=== PATIENT | female | born 1965 | race Caucasian/White ===

== ENCOUNTER → 2020-12-18 11:15 | Outpatient (CLI) | payer OTHER, SELFPAY ==
--- NOTE | ~2020-12-18 | MM_ITS ---
EXAMINATION: MM screening [facility] BI w benny HISTORY: Screening mammogram TECHNIQUE: Craniocaudal and mediolateral oblique 3-D tomosynthesis images were obtained and synthetic 2-D images were generated. CAD analysis was submitted and interpreted. COMPARISON: 05/16/2016, 05/03/2016, 05/05/2015, 04/29/2015 BREAST PARENCHYMAL COMPOSITION: There are scattered areas of fibroglandular density. FINDINGS: RIGHT BREAST: There is no evidence of suspicious mass, calcification, or architectural distortion to suggest malignancy. A stable mass in the anterior third of the outer breast is considered benign give n the lack of interval change. There has been no significant interval change. LEFT BREAST: There is a possible mass in the middle third of the slightly outer breast 8 cm from the nipple. IMPRESSION: 1. Possible left breast mass. 2. Additional mammographic views and possible breast ultrasound are recommended. BI-RADS Category 0: Incomplete: Needs additional imaging evaluation. Reviewed, dictated and finalized at location A. IMPRESSION: 1. Possible left breast mass. 2. Additional mammographic views and possible breast ultrasound are recommended . BI-RADS Category 0: Incomplete: Needs additional imaging evaluation.
== END ==
PROVIDERS: Visit Provider Nurse Practitioner Obstetrics & Gynecology
DX: Z12.31 Encounter for screening mammogram for malignant neoplasm of breast (principal); R92.8 Other abnormal and inconclusive findings on diagnostic imaging of breast
CPT/HCPCS: 77063; 77067

== ENCOUNTER → 2021-01-15 07:54 | Outpatient (CLI) | payer OTHER, SELFPAY ==
--- NOTE | ~2021-01-15 | MMUS_ITS ---
EXAMINATION: MM diagnostic [facility] LT w benny, US breast LT limited HISTORY: Follow-up left breast asymmetry TECHNIQUE: Additional 3-D tomosynthesis images of the left breast were performed and synthetic 2-D im ages were generated. CAD analysis was submitted and interpreted. High resolution Limited left breast ultrasound was performed. COMPARISON: Comparison to multiple prior studies sequentially, with oldest reviewed study dated 04/12. BREAST PARENCHYMAL COMPOSITION: Breast composed of scattered areas of fibroglandular density. FINDINGS: MAMMOGRAPHIC FINDINGS: There is a focal asymmetry in the upper outer quadrant of the left breast with possible architectural distortion. There are no suspicious calcifications. ULTRASOUND: Limited left breast ultrasound: At 2:00, 6 cm from the nipple, there is a 3 mm cyst. At 1:00, 6 cm fr om the nipple, there is a regular shaped hypoechoic mass measuring 6 x 5 x 5 mm with posterior shadow ing and angular margins. There is antiparallel configuration. There is marginal vascularity. IMPRESSION: 1. Irregular shaped hypoechoic left breast mass measuring up to 6 mm located at 2:00, 6 cm from the n ipple. This corresponds to the area of mammographic concern. 2. Ultrasound-guided left breast biopsy recommended. BI-RADS category 4, suspicious findings. Reviewed, dictated and finalized at location A. IMPRESSION: 1. Irregular shaped hypoechoic left breast mass measuring up to 6 mm located at 2:00, 6 cm from the nipple. This corresponds to the area of mammographic ray rn. 2. Ultrasound-guided left breast biopsy recommended. BI-RADS category 4, suspicious findings.
== END ==
PROVIDERS: Visit Provider Nurse Practitioner Obstetrics & Gynecology
DX: N63.21 Unspecified lump in the left breast, upper outer quadrant (principal); N60.02 Solitary cyst of left breast
CPT/HCPCS: 76642; 77061; 77065; G0279

== ENCOUNTER 2021-01-15 09:50 | Emergency (ER) | payer OTHER, SELFPAY ==
[2021-01-15] VITALS (16 sets, daily range): BP systolic 142–157; BP diastolic 93–110; PULSE 63–83; RESP 11–20; O2SAT 93–99
--- NOTE | ~2021-01-15 | XR_ITS ---
EXAMINATION: XR chest 2V DATE: 01/15/2021 10:15 INDICATION: Left-sided chest pain TECHNIQUE: PA and lateral views of the chest are obtained. COMPARISON: 03/24/2018 FINDINGS: The lungs are free of acute opacities. There is no pleural effusion or pneumothorax. The ca rdiomediastinal silhouette is normal. The visualized bones and soft tissues are unremarkable. Cholecy stectomy clips are present in the right upper quadrant. IMPRESSION: 1. No acute cardiopulmonary abnormality. Reviewed, dictated and finalized at location A.
--- NOTE | 2021-01-15 10:04 | ECG_ITS ---
Measurements Intervals [place] Rate: 72 P: 44 TX: 147 QRS: 7 QRSD: 106 T: 2 QT: 391 QTc: 429 Interpretive Statements SINUS RHYTHM LOW QRS VOLTAGE IN PRECORDIAL LEADS BASELINE ARTIFACT- I, II, III, AVR, AVL, AVF, V1-V6 BORDERLINE ECG Electronically Signed On 01-15-2021 10:08:23 CDT by Miller Mo D.O.
--- NOTE | 2021-01-15 10:14 | ED.CHESTPAIN ---
HPI - Chest Pain General Chief Complaint: Chest Pain Stated Complaint: chest pain Time Seen by Provider: 01/15/21 10:07 Source: patient Mode of arrival: ambulatory Limitations: no limitations History of Present Illness HPI narrative: This is a 55-year-old female that presents to the emergency department for epigastric/chest pain noted since early this morning. Reports she woke up around 4 AM with a dull ache in her chest. This was somewhat relieved with Tums. Reports she was at the imaging center getting an outpatient mammogram. She started to experience this pain again which prompted her to be seen. It has been constant since around 10 AM, but somewhat better since onset. The pain radiates to her back. Associated with some shortness of breath. Does report the pain is worse with deep breathing. Denies fever, cough, nausea, or vomiting. Related Data Allergies Allergy/AdvReac Type Severity Reaction Status Date / Time No Known Allergies Allergy Verified 12/25/20 10:13 Review of Systems Review of Systems: CONSTITUTIONAL: Denies fever CARDIOVASCULAR: Reports chest pain. Denies edema. RESPIRATORY: Reports dyspnea. Denies cough GASTROINTESTINAL: Reports abdominal pain. Denies nausea, vomiting All systems reviewed & are unremarkable except as noted in HPI and below PMFSH Past Medical History Medical History (Updated 01/15/21 @ 14:01 by Lore Nelson PA-C) History of hyperlipidemia History of hypertension Surgical History Surgical History (Updated 01/15/21 @ 10:34 by Lore Nelson PA-C) History of cholecystectomy Social History Social History (Updated 01/15/21 @ 10:33 by Lore Nelson PA-C) Smoking status: Never smoker Exam Narrative: GENERAL: Well-appearing, well-nourished, and in no acute distress. HEAD: Normocephalic, atraumatic. EYES: EOMI. NECK: Supple. No adenopathy or masses. No carotid bruits or JVD CHEST: Clear to auscultation. No respiratory distress. No wheezes rales or rhonchi HEART: Regular rate and rhythm. No murmur heard. Normal peripheral pulses. ABDOMEN: Soft, nondistended, normal active bowel sounds. Mild tenderness to palpation in the epigastrium, without guarding EXTREMITIES: Normal range of motion. No edema. SKIN: Warm, dry, no rash. NEURO: No focal deficits. Alert and oriented x3. PSYCH: Normal mood and affect Course Vital Signs Vital signs: Vital Signs Pulse Rate 77 01/15/21 09:57 Respiratory Rate 11 L 01/15/21 09:57 Pulse Oximetry 98 01/15/21 09:57 Pulse Rate 83 01/15/21 13:07 Respiratory Rate 20 01/15/21 13:07 Blood Pressure 142/93 H 01/15/21 12:01 Pulse Oximetry 98 01/15/21 13:07 MDM - Chest Pain MDM Narrative Medical decision making narrative: Patient presents to the emergency department for an episode of chest pain today. She is afebrile and nontoxic-appearing. Her vitals are stable. Reports relief in her pain with Tylenol and antacids. CBC and metabolic panel without concerning findings. Lipase is normal. EKG without concerning changes. Baseline and 3-hour troponin are negative. D-dimer is negative. Chest x-ray without acute cardiopulmonary abnormality. Her heart score is a 2. She is stable and felt appropriate for further outpatient evaluation. She is to follow up with her PCP. She was given warnings to return to the ER Lab Data Attestation: I reviewed the patient's lab results. Result diagrams: 01/15/21 11:12 01/15/21 11:12 Labs: Lab Results 01/15/21 01/15/21 01/15/21 Range/Units 11:12 11:12 11:12 WBC 8.0 (4.5-10.0) K/mm3 RBC 5.19 (4.2-5.4) M/mm3 Hgb 14.6 (12.0-15.0) g/dL Hct 42.6 (37.0-47.0) % MCV 82.1 (80-100) fl MCH 28.1 (26-34) pg MCHC 34.3 (32-36) g/dl RDW 12.2 (11.5-14.5) % Plt Count 351 (150-375) k/mm3 MPV 8.8 (7.4-10.4) fl Immature Gran % (Auto) 0.4 (0-0.5) % Neut % (Auto) 50.2 (45.5-73.1) % Lymph % (Auto) 36.9 (18
[2021-01-15] MEDS: PANTOPRAZOLE SODIUM IV 40 MG VIAL IV PUSH (11:06)
[2021-01-15 11:20] LABS: Basophils Absolute Auto 0.1 K/mm3 (0.0-0.1); Eosinophils Absolute Auto 0.2 K/mm3 (0-0.3); Hematocrit 42.6 % (37.0-47.0); Hemoglobin 14.6 g/dL (12.0-15.0); Immature Granulocyte Absolute 0.03 K/mm3 (0.00-0.031); Immature Granulocyte Percent A 0.4 % (0-0.5); Lymphocytes Absolute Auto 2.97 K/mm3 (0.9-3.2); Lymphocytes Percent Auto 36.9 % (18.3-44.2); Mean Corpuscular HGB Conc 34.3 g/dl (32-36); Mean Corpuscular Hemoglobin 28.1 pg (26-34); Mean Corpuscular Volume 82.1 fl (80-100); Mean Platelet Volume 8.8 fl (7.4-10.4); Monocytes Absolute Auto 0.8 K/mm3 (0.1-0.6); Monocytes Percent Auto 9.5 % (2.6-8.5); Neutrophils Percent Auto 50.2 % (45.5-73.1); Platelet Count Result 351 k/mm3 (150-375); Red Blood Count 5.19 M/mm3 (4.2-5.4); Red Cell Distribution Width 12.2 % (11.5-14.5)
[2021-01-15 11:30] LABS: Alanine Aminotransferase 39 U/L (4-35); Albumin Level 4.4 g/dL (3.5-5.1); Alkaline Phosphatase 102 U/L (38-126); Aspartate Amino Transferase 30 U/L (14-36); Bilirubin,Total 0.3 mg/dL (0.2-1.3); Lipase 93 U/L (23-300)
[2021-01-15 11:31] LABS: Anion Gap 11 mmol/L (8-16); Blood Urea Nitrogen 12 mg/dL (7-17); Calcium 9.8 mg/dL (8.4-10.2); Carbon Dioxide 23 mmol/L (22-30); Chloride 102 mmol/L (98-107); Estimated CRCL calculation 78 ml/min; Estimated Glomerular Filt Rate > 60; Glucose 91 mg/dL (65-110); Potassium 3.7 mmol/L (3.4-5.0); Sodium 136 mmol/L (137-145)
[2021-01-15 11:42] LABS: Troponin I < 0.012 ng/mL (0.000-0.034)
[2021-01-15 11:48] LABS: INR 0.9; Prothrombin Time 11.7 Seconds (11.1-14.7)
[2021-01-15 12:45] LABS: D Dimer < 0.22 ug/mL (<0.48)
[2021-01-15] MEDS: BELLADONNA ALK/PHENOB ELIX 10 ML, MAG HYDROX/ALUMINUM HYD/SIMETH 30 ML, LIDOCAINE HCL 2... PO (13:07)
[2021-01-15 13:46] LABS: Troponin I < 0.012 ng/mL (0.000-0.034)
== END 2021-01-15 20:25 | disposition home or self-care (01) ==
PROVIDERS: Physician Assistant; Emergency Provider Emergency Medicine; PCP Nurse Practitioner Family
DX: R07.9 Chest pain, unspecified (principal); E78.5 Hyperlipidemia, unspecified; I10 Essential (primary) hypertension; R94.31 Abnormal electrocardiogram [ECG] [EKG]
CPT/HCPCS: 36415; 71046; 80048; 80076; 83690; 84484; 85025; 85380; 85610; 85730; 93005; 96374; 96375; 99284; A9270; C9113; J0131

== ENCOUNTER 2022-07-04 10:27 | Outpatient (CLI) | payer OTHER, SELFPAY ==
--- NOTE | ~2022-07-04 | DEXA_ITS ---
Bone Density Report Name: ELISA PAREDES Age: 56 Sex: Female Ethnicity: White Date of : 1965 Indication: postmenopausal; screening for osteoporosis; cancer; Referring Provider: QUETAAMARA Nichols Study: Bone densitometry was performed. Exam Date: July 04, 2022 Accession number: [id number] Bone Density: Region BMD T-score Z-score Classification AP Spine (L1-L4) 0.888 -1.4 -0.3 Osteopenia Femoral Neck (Left) 0.707 -1.3 -0.2 Osteopenia Total Hip (Left) 0.915 -0.2 0.5 Normal Femoral Neck (Right) 0.736 -1.0 0.1 Normal Total Hip (Right) 0.938 0.0 0.7 Normal Total Hip Mean 0.927 -0.1 0.6 Normal World Health Organization criteria for BMD impression classify patients as: Normal (T-score at or above -1.0), Osteopenia (T-score between -1.0 and -2.5), or Osteoporosis (T-score at or below -2.5). 10-year Fracture Risk(1): Major Osteoporotic Fracture 6.8% Hip Fracture 0.5% Reported Risk Factors: [place] (), Neck BMD=0.707, BMI=25.7 (1) FRAX(R) Version 3.08. Fracture probability calculated for an untreated patient. Fracture probability may be lower if the patient has received treatment. Clinical Information Provided by Patient: Has used the following medications: Vitamin D, ISADORA Has the following medical conditions: Cancer, Hx of left breast ca lumpectomy in 2020 with radiation and Anastrozole Patient maximum height was 64.0 Menopause Age: 50 No regular weight bearing exercise Does not regularly consume dairy products Drinks caffeinated beverages Onset of menses at age 16 Number of children 2 Impression: The patient has low bone mass, based on the Total Spine T-score. The patient has an estimated ten-year risk of hip fracture of 0.5% and an estimated ten-year risk of major fracture of 6.8%, based on the WHO FRAX algorithm. Discussion: BONE DENSITY IS LOW AT ONE OR MORE SKELETAL SITES. This patient's lowest T-score is low at one or more skeletal sites. It meets the World Health Organization's (WHO) criteria for ?low bone mass? (T-score between -1.0 and -2.5). The patient's 10-year risk of fracture as calculated by FRAX is less than the threshold where pharmacological therapy is recommended by the National Osteoporosis Foundation (NOF). However, all treatment decisions require clinical judgment and consideration of individual patient factors, including patient preferences, comorbidities, previous drug use, risk factors not captured in the FRAX model (e.g., frailty, falls, vitamin D deficiency, increased bone turnover, interval significant decline in bone density) and possible under or overestimation of fracture risk by FRAX. The patient should follow a healthful lifestyle (good nutrition with adequate calcium and vitamin D, and appropriate weight-bearing exercise). Follow-Up: Consider olga
== END 2022-07-04 10:28 ==
LOC: MICIMG 10:29
PROVIDERS: PCP Nurse Practitioner Family; Visit Provider Nurse Practitioner Family
DX: Z78.0 Asymptomatic menopausal state (principal); M85.88 Other specified disorders of bone density and structure, other site; M85.852 Other specified disorders of bone density and structure, left thigh
CPT/HCPCS: 77080

== ENCOUNTER 2023-08-10 15:54 | Outpatient (CLI) | payer OTHER, SELFPAY ==
--- NOTE | ~2023-08-10 | CT_ITS ---
EXAMINATION: CT abdomen pelvis wo con DATE: 08/10/2023 16:07 INDICATION: Left flank pain. Hematuria. TECHNIQUE: Computed tomography (CT) of the abdomen and pelvis was performed without intravenous contr ast. Automated exposure control and iterative reconstruction technique were employed. The dose-length product was 362.61 mGy-cm. COMPARISON: CT abdomen and pelvis 12/26/2016 FINDINGS: The visualized portions of the lung bases demonstrate minimal atelectasis. No pleural effus ion. The heart size is normal. There are coronary artery calcifications. No pericardial effusion. The re is a 16 mm cyst in the liver. There are changes of cholecystectomy. The spleen, pancreas, adrenal glands, and right kidney are normal. There is mild left hydronephrosis and hydroureter. There is a 4 mm stone in distal left ureter. There are no dilated loops of bowel. The appendix is normal. There ar e no pathologically enlarged lymph nodes. There is no free intraperitoneal fluid. There is mild aorti c atherosclerosis. There is a benign bone island in left ilium. There is severe lower lumbar spondylo sis. IMPRESSION: 1. 4 mm stone in distal left ureter with mild left hydronephrosis and hydroureter. Reviewed, dictated and finalized at location A. [employer]NE [employer] IMPRESSION: 1. 4 mm stone in distal left ureter with mild left hydronephrosis and hydrouret er.
== END 2023-08-10 15:55 ==
LOC: MICIMG 15:56
PROVIDERS: PCP Nurse Practitioner Family; Visit Provider Nurse Practitioner Family
DX: R10.9 Unspecified abdominal pain (principal); R31.9 Hematuria, unspecified; N20.1 Calculus of ureter
CPT/HCPCS: 74176